=== PATIENT | male | born 1975 | race Caucasian/White ===

== ENCOUNTER 2020-12-10 18:32 | Emergency (ER) | payer OTHER, BC ==
[~2020-12-10] VITALS: Ht 182.9 cm; Wt 100.0 kg
[2020-12-10 18:42] VITALS: BP 141/97
[2020-12-10] MEDS ORDERED: CYCL-1 PO (20:14)
== END 2020-12-10 20:32 | disposition home or self-care (01) ==
LOC: ER 18:33
DX: S16.1XXA Strain of muscle, fascia and tendon at neck level, initial encounter (principal); Z88.6 Allergy status to analgesic agent; Z79.899 Other long term (current) drug therapy; V87.7XXA Person injured in collision between other specified motor vehicles (traffic), initial encounter; Y93.89 Activity, other specified; Y92.89 Other specified places as the place of occurrence of the external cause; Y99.8 Other external cause status
CPT/HCPCS: 99283